=== PATIENT | male | born 1995 | race Two or more races ===

== ENCOUNTER 2018-01-26 14:30 | Emergency (ER) | payer BC, MEDICAID ==
[2018-01-26] MEDS ORDERED: EPINEPHRine HCL 1 mg/mL 1mL Amp SUBQ STA (14:36)
--- NOTE | 2018-01-26 14:39 | ED Physician Chart ---
ED Chief Complaint/HPI - Patient Information Date Seen:: 01/26/18 Time Seen:: 14:39 Chief Complaint:: Anaphylaxis History of Present Illness:: 22 yo male had numbness of lips, burning sensation in eyes one hour after cutting pencil plants. The patient also felt throat becoming swelling with difficulty swallowing. Patient took benadryl 25mg po once before arriving ER. ED Review of Systems - Review of Systems General/Constitutional: No fever Skin: No skin lesions Head: No headache Eyes: No pain ENT: No earache Neck: No neck pain Cardio Vascular: No chest pain Pulmonary: No SOB GI: No nausea, No vomiting Musculoskeletal: No bone or joint pain Psychiatric: No prior psych history ED Past Medical History - Past Medical History Past Medical History: No significant medical hx Social History: Non Smoker, Alcohol, No Drug Use Surgical History: None ED Physical Exam - Physical Examination General/Constitutional: Awake, Alert Head: Atraumatic Eyes: PERRL Skin: No ecchymosis ENMT: Nasal exam nl Neck: No nuchal rigidity Respiratory: No Wheeze/Rhonchi/Rales Cardio Vascular: RRR, No murmur, gallop, rubs, NL S1 S2 GI: No tenderness/rebounding/guarding Extremities: normal strength in all extremities Neuro/Psych: No focal deficits ED Assessment - Assessment General Assessment: Anaphylaxis, mild Assessment/Comments:: Epinephrine 0.3mg SQ Solu-Medrol 40mg IV NS 1L IV bolus ED Septic Shock - . Is Septic Shock (SBP<90, OR Lactate>4 mmol\L) present?: No
[2018-01-26] MEDS ORDERED: methylPREDNISolone SS 40 mg Vial IVP STA (15:06)
[2018-01-26] MEDS ORDERED: Sodium Chloride 0.9% 1,000 ML IV ONE (15:09)
[2018-01-26] MEDS ORDERED: methylPREDNISolone SS 40 mg Vial ONE (15:16)
== END 2018-01-26 18:10 | disposition home or self-care (01) ==
LOC: ER 14:30 → EDSEX 14:30 → ER 17:50
DX: T78.2XXA Anaphylactic shock, unspecified, initial encounter (principal)
CPT/HCPCS: 96374; J2920; J7030; Z7502

== ENCOUNTER 2018-10-24 19:18 | Emergency (ER) | payer MEDICAID ==
--- NOTE | 2018-10-24 21:59 | ED Physician Chart ---
ED Chief Complaint/HPI - Patient Information Date Seen:: 10/24/18 Time Seen:: 19:35 Chief Complaint:: RASH History of Present Illness:: 23 YR OLD MALE WITH RASH AFTER SLEEPING IN [facility] HOTEL EXTENDED STAY WITH HIVES BUG BITES AND MUCH ITCHING Allergies:: Allergies Allergy/AdvReac Type Severity Reaction Status Date / Time No Known Allergies Allergy Verified 01/26/18 14:46 Vitals:: Vital Signs - 8 hr 10/24/18 19:28 Temp 98.5 F HR 65 RR 18 BP 135/77 O2 Sat % 97 ED Review of Systems - Review of Systems General/Constitutional: No fever, No chills, No weight loss, No weakness, No diaphoresis, No edema, No loss of appetite Skin: Skin lesions, Rash, No bruising Head: No headache, No light-headedness Eyes: No loss of vision, No pain, No diplopia ENT: No earache, No nasal drainage, No sore throat, No tinnitus Neck: No neck pain, No swelling, No thyromegaly, No stiffness, No mass noted Cardio Vascular: No chest pain, No palpitations, No PND, No orthopnea, No edema Pulmonary: No SOB, No cough, No sputum, No wheezing GI: No nausea, No vomiting, No diarrhea, No pain, No melena, No hematochezia, No constipation, No hematemesis G/U: No dysuria, No frequency, No hematuria Musculoskeletal: No bone or joint pain, No back pain, No muscle pain Endocrine: No polyuria, No polydipsia Psychiatric: No prior psych history, No depression, No anxiety, No suicidal ideation Hematopoietic: No bruising, No lymphadenopathy Allergic/Immuno: No urticaria, No angioedema Neurological: No syncope, No focal symptoms, No weakness, No paresthesia, No headache, No seizure, No dizziness, No confusion, No vertigo ED Past Medical History - Past Medical History Past Medical History: No significant medical hx Family Medical History - Family Member Mother History Unknown: Yes Hx Family Hypertension: Yes ED Physical Exam - Physical Examination General/Constitutional: Awake, Well-developed, well-nourished, Alert, No distress, GCS 15, Non-toxic appearing, Ambulatory Head: Atraumatic Eyes: Lids, conjuctiva normal, PERRL, EOMI Skin: Nl inspection, No rash, No skin lesions, No ecchymosis, Well hydrated, No lymphadenopathy Other Skin comments:: RASH WITH BUG BITES THROUGHOUT [place] ARMS LEGS ENMT: External ears, nose nl, Nasal exam nl, Lips, teeth, gums nl Neck: Nontender, Full ROM w/o pain, No JVD, No nuchal rigidity, No bruit, No mass, No stridor Respiratory: Nl effort/Exclusion, Clear to Auscultation, No Wheeze/Rhonchi/Rales Cardio Vascular: RRR, No murmur, gallop, rubs, NL S1 S2 GI: No tenderness/rebounding/guarding, No organomegaly, No hernia, Normal BS's, Nondistended, No mass/bruits, No McBurney tenderness : No CVA tenderness Extremities: No tenderness or effusion, Full ROM, normal strength in all extremities, No edema, Normal digits & nails Neuro/Psych: Alert/oriented, DTR's symmetric, Normal sensory exam, Normal motor strength, Judgement/insight normal, Mood normal, Normal gait, No focal deficits Misc: Normal back, No paraspinal tenderness ED Assessment - Assessment General Assessment: RASH BUG BITES HIVES ED Septic Shock - . Is Septic Shock (SBP<90, OR Lactate>4 mmol\L) present?: No - <6hrs of presentation: Vital Signs: Vital Signs - 8 hr 12/14/18 19:28 Temp 98.5 F HR 65 RR 18 BP 135/77 O2 Sat % 97 ED Reassessment (Disposition) - Reassessment Reassessment:: BUG BITES HIVES - Diagnosis Diagnosis:: ABOVE - Aftercare/Follow up Instructions Medication Prescribed:: ELIMITE CREAM AND BENADRYL - Patient Disposition Discharge/Transfer:: Home Condition at Disposition:: Stable
== END 2018-10-24 20:00 | disposition home or self-care (01) ==
LOC: ER 19:18
DX: L50.9 Urticaria, unspecified (principal); R21 Rash and other nonspecific skin eruption
CPT/HCPCS: Z7502

== ENCOUNTER 2019-01-09 23:23 | Emergency (ER) | payer MEDICAID ==
[2019-01-09] MEDS ORDERED: Acetaminophen 500 MG TAB PO ONE (23:52)
[2019-01-09] MEDS ORDERED: Acetaminophen 500 MG TAB ONE (23:55)
--- NOTE | 2019-01-10 00:32 | ED Physician Chart ---
ED Chief Complaint/HPI - Patient Information Date Seen:: 01/10/19 Time Seen:: 00:27 Chief Complaint:: fever History of Present Illness:: 23 yr old male with cough congestion Allergies:: Allergies Allergy/AdvReac Type Severity Reaction Status Date / Time No Known Allergies Allergy Verified 01/09/19 23:29 Vitals:: Vital Signs - 8 hr 01/09/19 01/09/19 23:30 23:55 Temp 99.5 F 101.9 F HR 99 97 RR 20 20 BP 120/68 122/66 O2 Sat % 95 97 ED Review of Systems - Review of Systems General/Constitutional: Fever, No fever, No chills, No weight loss, No weakness , No diaphoresis, No edema, No loss of appetite Skin: No skin lesions Head: No headache Eyes: No loss of vision ENT: No earache Cardio Vascular: No chest pain G/U: No dysuria [employer] Person: No vaginal discharge Musculoskeletal: No bone or joint pain Endocrine: No polyuria Psychiatric: No prior psych history Hematopoietic: No bruising Allergic/Immuno: No urticaria Neurological: No syncope ED Past Medical History - Past Medical History Past Medical History: No significant medical hx Family Medical History - Family Member Mother History Unknown: Yes Hx Family Hypertension: Yes ED Physical Exam - Physical Examination General/Constitutional: Awake, Well-developed, well-nourished, Alert, No distress, GCS 15, Non-toxic appearing, Ambulatory Head: Atraumatic Eyes: Lids, conjuctiva normal, PERRL, EOMI Skin: Nl inspection, No rash, No skin lesions, No ecchymosis, Well hydrated, No lymphadenopathy ENMT: External ears, nose nl, Nasal exam nl, Lips, teeth, gums nl Neck: Nontender, Full ROM w/o pain, No JVD, No nuchal rigidity, No bruit, No mass, No stridor Respiratory: Nl effort/Exclusion, Clear to Auscultation, No Wheeze/Rhonchi/Rales Cardio Vascular: RRR, No murmur, gallop, rubs, NL S1 S2 GI: No tenderness/rebounding/guarding, No organomegaly, No hernia, Normal BS's, Nondistended, No mass/bruits, No McBurney tenderness : No CVA tenderness Extremities: No tenderness or effusion, Full ROM, normal strength in all extremities, No edema, Normal digits & nails Neuro/Psych: Alert/oriented, DTR's symmetric, Normal sensory exam, Normal motor strength, Judgement/insight normal, Mood normal, Normal gait, No focal deficits Misc: Normal back, No paraspinal tenderness ED Septic Shock - . Is Septic Shock (SBP<90, OR Lactate>4 mmol\L) present?: No - <6hrs of presentation: Vital Signs: Vital Signs - 8 hr 01/09/19 01/09/19 23:30 23:55 Temp 99.5 F 101.9 F HR 99 97 RR 20 20 BP 120/68 122/66 O2 Sat % 95 97 ED Reassessment (Disposition) - Reassessment Reassessment:: bilateral Reassessment Condition:: Unchanged - Diagnosis Diagnosis:: fever - Aftercare/Follow up Instructions Aftercare/Follow-Up Instructions:: Counseled pt regarding lab results/diagnosis & need follow up - Patient Disposition Discharge/Transfer:: Home Admitted to:: Med/Surg Condition at Disposition:: Stable
== END 2019-01-10 01:00 | disposition home or self-care (01) ==
LOC: ER 23:23
DX: R50.9 Fever, unspecified (principal); R05 Cough; R09.89 Other specified symptoms and signs involving the circulatory and respiratory systems
CPT/HCPCS: 99283; 96372; J0696; Z7502; Z7610